=== PATIENT | female | born 1940 | race Two or more races ===

== ENCOUNTER → 2017-11-04 | Outpatient (CLI) | payer OTHER ==
[~2017-11-04] MED LIST: COZAAR100 MG; JANUMET 50-1,01 EACH; LANTUS SOL100 UNIT/1
== END | disposition home or self-care (01) ==
LOC: LAB 15:55
DX: L02.414 Cutaneous abscess of left upper limb (principal)

== ENCOUNTER 2018-01-07 10:37 | Outpatient (CLI) | payer OTHER | END 2018-01-07 10:53 | disposition home or self-care (01) | LOC: MAMO-SONO 10:37 | DX: Z12.31 Encounter for screening mammogram for malignant neoplasm of breast (principal); Z87.898 Personal history of other specified conditions; N60.11 Diffuse cystic mastopathy of right breast; N60.12 Diffuse cystic mastopathy of left breast ==

== ENCOUNTER 2022-11-23 09:23 | Outpatient (CLI) | payer OTHER | END 2022-11-23 09:32 | disposition home or self-care (01) | LOC: MAMO-SONO 09:23 | PROVIDERS: ATTEND Internal Medicine | DX: N60.11 Diffuse cystic mastopathy of right breast (principal); N60.12 Diffuse cystic mastopathy of left breast; Z12.31 Encounter for screening mammogram for malignant neoplasm of breast ==

== ENCOUNTER 2022-11-23 10:39 | Outpatient (CLI) | payer OTHER | END 2022-11-23 10:41 | disposition home or self-care (01) | LOC: NUCLEAR 10:39 | PROVIDERS: ATTEND Internal Medicine | DX: I65.23 Occlusion and stenosis of bilateral carotid arteries (principal); I25.10 Atherosclerotic heart disease of native coronary artery without angina pectoris; I11.9 Hypertensive heart disease without heart failure; E11.29 Type 2 diabetes mellitus with other diabetic kidney complication; E78.00 Pure hypercholesterolemia, unspecified ==

== ENCOUNTER 2023-02-19 15:34 | Emergency (ER) | payer OTHER ==
[~2023-02-19] VITALS: Ht 147.3 cm; Wt 41.3 kg
[2023-02-19] MEDS ORDERED: CRESTOR20 MG PO (16:10)
[2023-02-19] MEDS ORDERED: TOPROL XL100 M1 PO (16:11)
[2023-02-19] MEDS ORDERED: HYZAAR 100-251 EACH PO (16:11)
[2023-02-19] MEDS ORDERED: VERAPAMIL ER240 MG PO (16:11)
== END 2023-02-19 17:34 | disposition home or self-care (01) ==
LOC: ER 15:35
DX: I10 Essential (primary) hypertension (principal); E11.9 Type 2 diabetes mellitus without complications; Z79.84 Long term (current) use of oral hypoglycemic drugs; Z91.013 Allergy to seafood

== ENCOUNTER 2023-04-30 06:22 | Day surgery (SDC) | payer OTHER ==
[2023-04-29 10:21] LABS: PH,URINE 7.5 (5.0-8.0); URINE APPEARANCE Clear; URINE BILIRRUBIN Negative (NEGATIVE); URINE BLOOD Negative; URINE COLOR Yellow; URINE GLUCOSE Negative (NEGATIVE); URINE LEUKOCYTE Small; URINE NITRATE Negative; URINE PROTEIN Trace (NEGATIVE)
[2023-04-29 10:28] LABS: URINE BACTERIA 11.3 uL (0.0-1933); URINE EPITHELIAL CELLS 5.5 uL (0.0-38.8); URINE RBC 3.3 uL (0.0-20.8); URINE WBC 17.4 uL (0.0-23.2)
[2023-04-29 10:31] LABS: HEMATOCRIT 37.5 % (36.0-45.00); HEMOGLOBIN 12.7 g/dL (12.0-15.00); MEAN CELL VOLUME 89.3 fL (80.00-100.00); MEAN CORPUSCULAR HEMOGLOBIN 30.2 pg (27.00-32.0); MEAN CORPUSCULAR HGB CONC 33.9 g/dl (32.0-36.0); PLATELET COUNT 202 K/uL (150-450); RED CELL DISTRIBUTION WIDTH 14.3 % (11.5-14.5)
[2023-04-29 11:31] LABS: INR 1.02; PARTIAL THROMBOPLASTIN TIME 25.1 SECONDS (22.0-34.0); PROTHROMBIN TIME 10.7 SECONDS (9.0-11.5)
[2023-04-29 11:33] LABS: ALBUMIN 3.7 gm/dL (3.4-5.0); BILIRUBIN TOTAL 0.88 mg/dL (0.3-1.2); CALCIUM 9.5 mg/dL (8.5-10.1); CREATININE SERUM 0.86 mg/dL (0.55-1.02); GFR 62.86; GLOBULINA 3.4 G/DL (2.4-3.5); POTASSIUM 4.15 mEq/L (3.5-5.1); TOTAL PROTEIN 7.1 gm/dL (6.4-8.2)
[~2023-04-30 06:22] MED LIST changes: +CRESTOR20 MG PO; +HYZAAR 100-251 EACH PO; +TOPROL XL100 M1 PO; +VERAPAMIL ER240 MG PO
[2023-04-30] MEDS ORDERED: CIPROFLOXACIN IN 5 % DEXTROSE 400 MG/200 ML PIGGYBAG IV ONE (09:28)
[2023-04-30] MEDS ORDERED: CHLORHEXIDINE GLUCONATE 120 ML BOTTLE TOP ONE (09:28)
[2023-04-30] MEDS ORDERED: CIPROFLOXACIN IN 5 % DEXTROSE 400 MG/200 ML PIGGYBAG IV SCH (10:15)
[2023-04-30] MEDS ORDERED: CHLORHEXIDINE GLUCONATE 120 ML BOTTLE TOP SCH (10:15)
== END 2023-04-30 15:50 | disposition home or self-care (01) ==
LOC: CIR.AMB 06:22
PROVIDERS: ATTEND Surgery
DX: C50.412 Malignant neoplasm of upper-outer quadrant of left female breast (principal); R59.0 Localized enlarged lymph nodes; Z20.822 Contact with and (suspected) exposure to COVID-19; I10 Essential (primary) hypertension; E11.9 Type 2 diabetes mellitus without complications; Z91.013 Allergy to seafood
CPT/HCPCS: 19301; 38525; 19281; A9541; L8699

== ENCOUNTER 2024-09-27 14:29 | Outpatient (CLI) | payer OTHER | END 2024-09-27 14:37 | disposition home or self-care (01) | LOC: MAMO-SONO 14:29 | PROVIDERS: ATTEND Internal Medicine | DX: C50.912 Malignant neoplasm of unspecified site of left female breast (principal); Z85.3 Personal history of malignant neoplasm of breast ==